=== PATIENT | female | born 1995 | race American Indian/Alaskan Native ===

== ENCOUNTER 2019-05-15 22:58 | Emergency (ER) | payer SELFPAY ==
[2019-05-15 23:07] VITALS: BP 139/73
[2019-05-16 01:08] LABS: HCG Qualitative,Urine Negative (Negative)
[2019-05-16 01:09] LABS: Bilirubin,Urine NEG (Negative); Blood,Urine LG (Negative); Color,Urine Yellow (Yellow); Mucus,Urine FEW /HPF; Protein,Urine <15 mg/dL mg/dL (Negative); Urobilinogen,Urine < 2.0 mg/dL (<2.0)
[2019-05-16] MEDS ORDERED: IBUPROFEN 800 MG TAB PO ONE (04:59)
--- NOTE | 2019-05-16 04:59 | Emergency Department Report ---
ED Female HPI - General Chief complaint: Urogenital-Female Stated complaint: POSS PREG/LOWER ABD PAIN Time Seen by Provider: 05/16/19 01:15 EST Source: patient Mode of arrival: Ambulatory Limitations: No Limitations - History of Present Illness Initial comments: This is a 23-year-old female here report that she missed her period in April and she is having pelvic pain with some brownish color drainage from her vaginal area with cramping bilateral pelvic area 5 days. Denies any fever or chills. Denies any back pain. She reports that her last menstrual period was 04/07/2019. Pain is 5 out of 10 and cramping and comes and goes. She is a hi story of asthma. Denies any fever or chills or nausea or vomiting. No medication taken prior to coming to the emergency room MD Complaint: pelvic pain, other (vaginal drainage and abdominal) Onset/Timin -: days(s) Location: suprapubic Radiation: non-radiating Severity: moderate Severity scale (0 -10): 6 Consistency: intermittent Improves with: none Worsens with: none Are you Now?: No Last Menstrual Period: 06/01/19 EDC: 03/07/20 Associated Symptoms: vaginal bleeding, abdominal pain, other (Miss.). denies: vaginal discharge, nausea/vomiting, fever/chills, headaches, loss of appetite, dysuria, hematuria, rash, seizure, shortness of breath, syncope, weakness - Related Data Sexually active: Yes (one-person) Previous Rx's Medication Instructions Recorded Last Taken Type Naproxen [Naprosyn TAB] 500 mg PO BID #12 tablet 05/16/19 Unknown Rx Allergies Allergy/AdvReac Type Severity Reaction Status Date / Time No Known Allergies Allergy Unverified 05/15/19 23:18 ED Review of Systems ROS: Stated complaint: POSS PREG/LOWER ABD PAIN Other details as noted in HPI Constitutional: denies: chills, fever ENT: denies: throat pain, congestion Respiratory: denies: cough, shortness of breath, wheezing Cardiovascular: denies: chest pain, palpitations, edema, syncope Gastrointestinal: abdominal pain. denies: nausea, vomiting, diarrhea, constipation, hematemesis, hematochezia Genitourinary: abnormal menses, other (vaginal bleeding). denies: urgency, dysuria, frequency, hematuria, discharge, dyspareunia Musculoskeletal: denies: back pain, joint swelling, arthralgia, myalgia Skin: denies: rash Neurological: denies: headache Psychiatric: denies: anxiety ED Past Medical Hx - Past Medical History Previous Medical History?: Yes Hx Asthma: Yes - Surgical History Past Surgical History?: No - Family History Family history: no significant - Social History Smoking Status: Never Smoker Substance Use Type: None - Medications Home Medications: Home Medications Medication Instructions Recorded Confirmed Last Taken Type Naproxen [Naprosyn TAB] 500 mg PO BID #12 tablet 05/16/19 Unknown Rx ED Physical Exam - General Limitations: No Limitations General appearance: alert, in no apparent distress - Head Head exam: Present: atraumatic, normocephalic - Eye Eye exam: Present: normal appearance, PERRL, EOMI - ENT ENT exam: Present: normal exam, normal orophraynx, mucous membranes moist - Neck Neck exam: Present: normal inspection, full ROM. Absent: tenderness - Respiratory Respiratory exam: Present: normal lung sounds bilaterally. Absent: respiratory distress, chest wall tenderness - Cardiovascular Cardiovascular Exam: Present: regular rate, normal rhythm, normal heart sounds - GI/Abdominal GI/Abdominal exam: Present: soft, normal bowel sounds. Absent: distended, tenderness, guarding, rebound, rigid, organomegaly, mass, bruit, pulsatile mass, hernia - External exam: Present: normal external exam, bleeding. Absent: erythema, sw elling, lesions, lacerations Speculum exam: Present: vaginal bleeding (from cervical os). Absent: erythema, vaginal discharge, cervical discharge, tissue, laceration Bi-manual exam: Present: adnexal tenderness. Absent: cervical motion tendernes, adnexal mass - Extremities Exam Extremities exam: Present: normal inspection, full ROM, normal capillary refill, other (No cce. + 2 pulses in all extremities, no neurovascular compromise). Absent: tenderness, pedal edema, joint swelling - Back Exam Back exam: Present: normal inspection, full ROM, other (ambulates without any difficulties). Absent: tenderness, CVA tenderness (R), CVA tenderness (L), muscle spasm, paraspinal tenderness, vertebral tenderness, rash noted - Neurological Exam Neurological exam: Present: alert, oriented X3, normal gait - Psychiatric Psychiatric exam: Present: normal affect, normal mood - Skin Skin exam: Present: warm, dry, intact, normal color. Absent: rash ED Course Vital Signs 05/15/19 23:03 Temperature 98.7 F Pulse Rate 92 H Respiratory 18 Rate Blood Pressure 139/73 O2 Sat by Pulse 100 Oximetry - Reevaluation(s) Reevaluation #1: 05/16/19 06:25 Patient given ibuprofen 800 mg by mouth and emergency room for pelvic pain which relieved her pain. She is feeling better and in no acute distress. Patient was not concerned for any STD and she was not having any vaginal discharge or foul odor. ED Medical Decision Making - Lab Data Result diagrams: 05/16/19 05:01 05/16/19 05:01 Lab Results 05/16/19 05/16/19 05/16/19 Range/Units 01:00 EST 05:01 05:01 WBC 8.9 (4.5-11.0) K/mm3 RBC 4.60 (3.65-5.03) M/mm3 Hgb 13.1 (10.1-14.3) gm/dl Hct 39.9 (30.3-42.9) % MCV 87 (79-97) fl MCH 28 (28-32) pg MCHC 33 (30-34) % RDW 15.4 H (13.2-15.2) % Plt Count 229 (140-440) K/mm3 Lymph % (Auto) 33.9 (13.4-35.0) % [place] % (Auto) 7.7 H (0.0-7.3) % Eos % (Auto) 0.8 (0.0-4.3) % Baso % (Auto) 0.8 (0.0-1.8) % Lymph # 3.0 (1.2-5.4) K/mm3 [place] # 0.7 (0.0-0.8) K/mm3 Eos # 0.1 (0.0-0.4) K/mm3 Baso # 0.1 (0.0-0.1) K/mm3 Seg Neutrophils % 56.8 (40.0-70.0) % Seg Neutrophils # 5.1 (1.8-7.7) K/mm3 Sodium 139 (137-145) mmol/L Potassium 3.9 (3.6-5.0) mmol/L Chloride 102.4 (98-107) mmol/L Carbon Dioxide 25 (22-30) mmol/L Anion Gap 16 mmol/L BUN 9 (7-17) mg/dL Creatinine 0.7 (0.7-1.2) mg/dL Estimated GFR > 60 ml/min BUN/Creatinine Ratio 13 % Glucose 84 (65-100) mg/dL Calcium 9.3 (8.4-10.2) mg/dL Urine Color Yellow (Yellow) Urine Turbidity Clear (Clear) Urine pH 5.0 (5.0-7.0) Ur Specific [place] 1.024 (1.003-1.030) Urine Protein <15 mg/dl (Negative) mg/dL Urine Glucose (UA) Neg (Negative) mg/dL Urine Ketones Neg (Negative) mg/dL Urine Blood Lg (Negative) Urine Nitrite Neg (Negative) Ur Reducing Substances Not Reportable Urine Bilirubin Neg (Negative) Urine Ictotest Not Reportable Urine Urobilinogen < 2.0 (<2.0) mg/dL Ur Leukocyte Esterase Neg (Negative) Urine WBC (Auto) 3.0 (0.0-6.0) /HPF Urine RBC (Auto) 7.0 (0.0-6.0) /HPF U Epithel Cells (Auto) 3.0 (0-13.0) /HPF Urine Mucus Few /HPF Urine HCG, Qual Negative (Negative) - Radiology Data Radiology results: report reviewed Transvaginal ultrasound non-OB dictated by radiologist and report reviewed by myself. See report below Findings [facility] [address] [place] [address] Ultrasound Report Signed Patient: LIDA LITTLE MR#: [id number] : 1995 Acct:[id number] Age/Sex: 23 / F ADM Date: 05/15/19 Loc: ED Attending Dr: Ordering Physician: YOLANDA ALEXANDRA Date of Service: 05/16/19 Procedure(s): US transvaginal Accession Number(s): [id number] cc: YOLANDA ALEXANDRA ULTRASOUND PELVIS INDICATION / CLINICAL INFORMATION: pelvic pain with bleeding non. TECHNIQUE: Transvaginal. Duplex Color Doppler used: Yes. COMPARISON: None available FINDINGS: UTERUS: Present. - Appearance (if present): No significant abnormality. - Size in cm (if present): 8.7 x 4.5 x 6.3. - Endometrial Complex (if present): Mildly thickened.. Thickness in cm (if measured) = 1.8 - Mass lesions: None. - Additional findings: None. RIGHT ADNEXA: Small 1.4 cm complex cyst. Normal color Doppler blood flow. LEFT ADNEXA: Small 1.6 cm complex cyst. Normal color Doppler blood flow. URINARY BLADDER: No significant abnormality. FREE FLUID: None. ADDITIONAL FINDINGS: None. IMPRESSION: 1. Mildly thickened endometrial complex. Signer Name: Deepa Jonas MD Signed: 05/16/2019 6:01 AM Workstation Name: [id number] Transcribed By: DT Dictated By: Braeden Jonas MD Electronically Authenticated By: Braeden Jonas MD Signed Date/Time: 05/16/19600 DD/ 0559 TD/TT: - Medical Decision Making Patient here for pelvic pain and vaginal drainage that she thought was discharged. Abdomen evaluation of her vaginal area I noted blood coming from vaginal vault and patient is currently on her period. She is negative for and has large amount of blood in her urine with mild tenderness to palpate to adnexal area. Transvaginal non-OB ultrasound showed patient with small ovarian cysts and endometrial thickening probably from her being on her menses. Her CBC and chemistry are stable. I discussed the patient and her lab results and ultrasound results. I also discussed diagnosis and treatment plan. She does not have primary care has no access to primary care and I told her that she needs to follow-up with [facility] and I will refer her to [facility] for follow-up and also to [facility] on-call was Dr. Rigoberto Mijares. I discussed with her that she needs to her Pap smear and also her. Will need to be regulated by her OB/GY N doctor. She voiced understanding and discharged home with prescription for naproxen for dysmenorrhea and pelvic pain from ovarian cysts. Vital signs are stable afebrile and in no acute distress - Differential Diagnosis ovarian cysts, uterine fibroids, threatened miscarriage, UTI, menses Critical care attestation.: If time is entered above; I have spent that time in minutes in the direct care of this critically ill patient, excluding procedure time. ED Disposition Clinical Impression: Dysmenorrhea, Pelvic pain Ovarian cyst Qualifiers: Laterality: bilateral Qualified Code(s): N83.201 - Unspecified ovarian cyst, right side Disposition: - TO HOME OR SELFCARE Is pt being admited?: No Does the pt Need Aspirin: No Condition: Stable Instructions: Dysmenorrhea (ED), Ovarian Cyst (ED) Additional Instructions: Is follow-up with referrals to [facility] or [facility] in 2-3 days and call tomorrow to schedule an appointment for visit. Increase your fluid intake and take naproxen for pelvic cramping. Please remember to take this medication with food as it can cause irritation to his stomach lining If you condition worsens, please return to the emergency room. Prescriptions: Naproxen [Naprosyn TAB] 500 mg PO BID #12 tablet Referrals: [facility] [Outside] - 2-3 Days WING MIJARES MD [Staff Physician] - 2-3 Days Forms: Work/School Release Form(ED)
[2019-05-16 05:12] LABS: Basophils # (Auto) 0.1 K/mm3 (0.0-0.1); Basophils % (Auto) 0.8 % (0.0-1.8); Eosinophils # (Auto) 0.1 K/mm3 (0.0-0.4); Eosinophils % (Auto) 0.8 % (0.0-4.3); Hematocrit 39.9 % (30.3-42.9); Hemoglobin 13.1 gm/dl (10.1-14.3); Lymphocytes % (Auto) 33.9 % (13.4-35.0); Mean Corpuscular HGB Conc 33 % (30-34); Mean Corpuscular Volume 87 fl (79-97); Monocytes # (Auto) 0.7 K/mm3 (0.0-0.8); Monocytes % (Auto) 7.7 % (0.0-7.3); Platelet Count 229 K/mm3 (140-440); Red Cell Distribution Width 15.4 % (13.2-15.2)
[2019-05-16 05:33] LABS: BUN/Creatinine Ratio 13; Blood Urea Nitrogen 9 mg/dL (7-17); Calcium 9.3 mg/dL (8.4-10.2); Hemolysis Index 19
--- NOTE | 2019-05-16 06:05 | Ultrasound Report ---
ULTRASOUND PELVIS INDICATION / CLINICAL INFORMATION: pelvic pain with bleeding non. TECHNIQUE: Transvaginal. Duplex Color Doppler used: Yes. COMPARISON: None available FINDINGS: UTERUS: Present. - Appearance (if present): No significant abnormality. - Size in cm (if present): 8.7 x 4.5 x 6.3. - Endometrial Complex (if present): Mildly thickened.. Thickness in cm (if measured) = 1.8 - Mass lesions: None. - Additional findings: None. RIGHT ADNEXA: Small 1.4 cm complex cyst. Normal color Doppler blood flow. LEFT ADNEXA: Small 1.6 cm complex cyst. Normal color Doppler blood flow. URINARY BLADDER: No significant abnormality. FREE FLUID: None. ADDITIONAL FINDINGS: None. IMPRESSION: 1. Mildly thickened endometrial complex. Signer Name: Deepa Jonas MD Signed: 05/16/2019 6:01 AM Workstation Name: [id number]
== END 2019-05-16 06:42 | disposition home or self-care (01) ==
LOC: ED 22:58
DX: N94.6 Dysmenorrhea, unspecified (principal); N83.201 Unspecified ovarian cyst, right side; Z79.899 Other long term (current) drug therapy; J45.909 Unspecified asthma, uncomplicated
CPT/HCPCS: 36415; 76830; 80048; 81001; 81025; 85025; 99284